=== PATIENT | male | born 1985 | race Caucasian/White ===

== ENCOUNTER 2020-11-17 02:53 | Emergency (ER) | payer MEDICAID, SELFPAY ==
--- NOTE | ~2020-11-17 | XR_ITS ---
EXAMINATION: XR CHEST CLINICAL INFORMATION: Cough COMPARISON: 04/10/2018 TECHNIQUE: Frontal view of the chest was obtained. FINDINGS: Normal symmetric lung volumes. No parenchymal consolidation. No pleural effusion. No pneumothorax. Cardiomediastinal silhouette and pulmonary vascularity are within normal limits. No acute osseous abnormalities. XR/XR chest 1V IMPRESSION: Unremarkable examination.
[2020-11-17 03:00] VITALS: BP 125/78; PULSE 80; RESP 16; TEMP 36.8; O2SAT 98; BMI 34.8
--- NOTE | 2020-11-17 03:10 | ED_ITS ---
HPI - General Adult General Chief complaint: Nausea/Vomiting/Diarrhea Stated complaint: FLU LIKE SX, FEVER,CHILLS,WEAKNESS Time Seen by Provider: 11/17/20 03:09 Source: patient and EMS Mode of arrival: EMS Limitations: no limitations History of Present Illness HPI narrative: 35 years old male came in by ambulance for evaluation of subjective fever. Symptoms started yesterday's, no recent travel, no sick contact. Patient is complaining of subjective fever, generalized body ache, nausea, vomiting, and headache. Patient has received 2 shots for COVID vaccination. Related Data Allergies Allergy/AdvReac Type Severity Reaction Status Date / Time No Known Allergies Allergy Unverified 12/31/19 15:51 Review of Systems Review of Systems: All other systems are reviewed and are negative Constitutional: Reports as per HPI and Reports no additional constitutional c omplaints Eyes: Reports as per HPI and Reports no additional eye complaints Reports system reviewed and no additional complaints, except as documented Cardiovascular: Reports as per HPI and Reports no additional cardiovascular complaints Respiratory: Reports as per HPI and Reports no additional respiratory complaints Gastrointestinal: Reports as per HPI and Reports no additional gastrointestinal complaints Genitourinary: Reports no additional female genitourinary complaints Musculoskeletal: Reports no additional musculoskeletal complaints Skin/Breast: Reports system reviewed and no additional complaints, except as docu Psychiatric: Reports no additional psychiatric complaints Endocrine: Reports no additional endocrine complaints Hematologic/Lymphatic: Reports no additional hematologic/lymphatic complaints Allergic/Immunologic: Reports no additional allergic/immunologic complaints Reports system reviewed and no additional complaints, except as documented and Reports Abnormal speech [facility] Social History Social History Advance Directives: No Advance Directives Information Provided: Yes Physical Exam Vital Signs: Vital Signs: Last Vital Signs Temp 98.3 F 11/17/20 03:00 Pulse 78 11/17/20 06:39 Resp 16 11/17/20 06:39 BP 122/76 11/17/20 06:39 Pulse Ox 98 11/17/20 06:39 Body Mass Index 34.8 Vital signs have been reviewed as appeared to be correct. Blood pressure normal. Heart rate normal. Respiration rate normal. Temperature normal. Oxygen saturation normal. Appearance: Alert. Oriented X3. No acute distress. Head: Normal external exam. Normocephalic. Atraumatic. No Quigley signs noted. No raccoon eyes noted Eyes: PERRLA. EOMI. Conjunctiva and sclera normal. Eyelids normal. ENT: TM's Normal. Pharynx normal. Uvula midline. Moist mucous membranes. No trismus noted. No drooling noted. No muffled voice noted. Neck: Normal inspection. Neck supple. FROM. No adenopathy. Thyroid Normal. No meningeal signs. No neck mass noted. CVS: Normal heart rate and rhythm. Heart sound normal. No murmurs noted. Pulses normal throughout. Respiratory: No respiratory distress. Painless inspiration. Breath sounds normal. No wheezes/rales/rhonchi noted. Chest nontender. No accessory muscle usage noted or decreased air movement noted. Abdomen: Soft and nontender. Bowel sounds normal in all 4 quadrants. No distention noted. No organomegaly noted. No visible injury noted. Back: No CVA tenderness. Full range of motion noted. Skin: Skin warm and dry. Normal skin color. Normal skin turgor. No rashes/lesions/lacerations noted. Extremities: No lower extremity edema. Extremities exhibit normal range of motion. Extremities nontender. Neuro: Oriented X 3. No motor deficit. No sensory deficit. Reflexes normal. Course Course Course Narrative: Assessment and plan. Flu-like symptoms, negative swab for flu/COVID/RSV. Also unremarkable chest x- ray. reassure, discharge and follow-up with PCP. Fever control at home with Tylenol and ibuprofen. Medical Decision Making Lab Data Lab results reviewed: Yes I reviewed the patient's lab results. Labs: Lab Results 11/17/20 Range/Units 03:20 Coronavirus (PCR) NEGATIVE (Negative) Influenza Type A (PCR) NEGATIVE (Negative) Influenza Type B (PCR) NEGATIVE (Negative) RSV RNA Qual (PCR) NEGATIVE (Negative) Imaging Data Chest x-ray: Radiologist's impression: Unremarkable examination. Discharge Plan Discharge Clinical Impression: Acute viral syndrome Patient Disposition: Home, Self-Care Instructions: Viral Syndrome (ED) Referrals: [facility] [Primary Care Provider] - 2 days
--- NOTE | 2020-11-17 03:14 | PC.NURSE ---
PT TO ROOM WITH C/O NAUSEA/VOMITING SINCE YESTERDAY. PT CHG INTO GOWN AND MD AT BEDSIDE WITH PT. SWAB COLLECTED TO LAB. X-RAY IN ROOM FOR CXR.
[2020-11-17] MEDS: Ibuprofen 600 MG TABLET PO (03:17)
[2020-11-17] MEDS: Ondansetron ODT 4 MG TAB.RAPDIS TRANSLINGU (03:17)
--- NOTE | 2020-11-17 03:25 | PC.NURSE ---
PT MEDICATED PER EMAR. WILL CONTINUE TO MONITOR PT.
--- NOTE | 2020-11-17 04:00 | PC.NURSE ---
PT RESTING IN STRETCHER, WAKES TO VOICE AND DENIES ANY COMPLAINTS. PT AWAITING X-RAY REPORT.
[2020-11-17 04:07] LABS: Influenza A PCR NEGATIVE (Negative); Influenza B PCR NEGATIVE (Negative); Resp Syncy Virus RNA Qual PCR NEGATIVE (Negative); SARS COV2 PCR INHOUSE NEGATIVE (Negative)
[2020-11-17 06:00] VITALS: PULSE 70; RESP 16
[2020-11-17 06:39] VITALS: BP 122/76; PULSE 78; RESP 16; O2SAT 98
== END 2020-11-17 07:28 | disposition home or self-care (01) ==
PROVIDERS: Emergency Provider Emergency Medicine
DX: B34.9 Viral infection, unspecified (principal); R50.9 Fever, unspecified; Z20.822 Contact with and (suspected) exposure to COVID-19
CPT/HCPCS: 0241U; 36415; 71045; 99284

== ENCOUNTER 2022-11-09 15:36 | Outpatient (REF) | payer MEDICAID, SELFPAY ==
[2022-11-09 16:19] LABS: MANUAL DIFF FLAG NO
[2022-11-09 16:38] LABS: Basophils Absolute Auto 0.1 X10*3/uL (0.0-0.2); Basophils Percent Auto 0.6 % (0-2); Eosinophils Absolute Auto 0.9 X10*3/uL (0.0-0.4); Eosinophils Percent Auto 10.4 % (0-4); Hematocrit 38.2 % (42.0-52.0); Hemoglobin 12.9 g/dl (14.0-18.0); Imm Gran Abs Auto 0.04 X10*3/uL (0.00-0.03); Imm Gran Pct Auto 0.5 % (0.0-0.4); Immature Retic Fraction 6.8 % (2.3-13.4); Lymphocytes Absolute Auto 3.4 X10*3/uL (1.2-4.9); Lymphocytes Percent Auto 38.3 % (20-40); Mean Corpuscular HGB Conc 33.8 g/dl (31.0-36.0); Mean Corpuscular Hemoglobin 28.5 pg (27.0-33.0); Mean Corpuscular Volume 84.5 fL (80.0-98.0); Mean Platelet Volume 9.4 fL (9.4-12.4); Monocytes Absolute Auto 0.5 X10*3/uL (0.1-1.2); Monocytes Percent Auto 6.1 % (2-11); Neutrophils Absolute Auto 3.9 x10*3/uL (2.0-8.3); Neutrophils Percent Auto 44.1 % (45-73); Platelet Count 251 X10*3/uL (160-400); Red Blood Count 4.52 X10*6/uL (4.60-5.80); Red Cell Distribution Width 11.9 % (11.0-16.0); Retic HGB Equivalent 34.5 pg (30.0-35.0); Reticulocyte Percent 1.3 % (0.5-1.8); Reticulocytes Absolute 0.058 X10*6/uL (0.026-0.095); White Blood Count 8.8 X10*3/uL (4.8-10.8)
[2022-11-09 16:59] LABS: Estimated Average Glucose 114 mg/dL; Hemoglobin A1c % 5.6 %
[2022-11-09 17:05] LABS: Alanine Aminotransferase 86 U/L (0-40); Albumin Level 4.3 g/dL (3.5-5.0); Alkaline Phosphatase 77 U/L (39-117); Anion Gap 16 (12-20); Aspartate Amino Transferase 43 U/L (5-37); Bilirubin Total 0.5 mg/dL (0.0-1.0); Blood Urea Nitrogen 12 mg/dL (9-16); Calcium 9.6 mg/dL (8.4-10.2); Carbon Dioxide 21 mmol/L (22-29); Chloride 100 mmol/L (96-108); Cholesterol 237 mg/dL; Estimated Glomerular Filt Rate > 60; Glucose Random 103 mg/dL (60-115); HDL Cholesterol 36 mg/dL; Iron 118 mcg/dL (45-160); LDL Cholesterol Calculated 169 mg/dl; Percent Iron Saturation 41 % (15-50); Potassium 4.4 mmol/L (3.3-5.1); Sodium 133 mmol/L (135-145); Total Iron Binding Capacity 287 mcg/dL (228-428); Total Protein 7.8 g/dL (6.5-8.0); Triglycerides 162 mg/dL; Unsaturated Iron Binding 169 ug/dL
[2022-11-09 17:26] LABS: Ferritin 361 ng/mL (20-250); TSH reflex Free T4 1.69 uIU/mL (0.32-4.0)
[2022-11-09 17:34] LABS: Folate 15.1 ng/mL (> or = 4.0); Vitamin B12 859 pg/mL (200-900)
[2022-11-12 04:00] LABS: Syphilis Screen Nonreactive (Nonreactive)
[2022-11-12 04:38] LABS: ~HepC Num1 0.06 S/CO (0.00-0.79); ~Hepatitis C Antibody Nonreactive (Nonreactive)
[2022-11-13 20:48] LABS: HIV RNA PCR Qn Copies Not Detected Copies/mL; HIV RNA PCR Qn Log Copies Not Detected Log cps/mL
== END 2022-11-09 15:37 | disposition home or self-care (01) ==
LOC: HO.HHCL 15:36
PROVIDERS: Visit Provider Registered Nurse
DX: Z11.3 Encounter for screening for infections with a predominantly sexual mode of transmission (principal); Z11.4 Encounter for screening for human immunodeficiency virus [HIV]; G25.81 Restless legs syndrome; E66.09 Other obesity due to excess calories; Z68.30 Body mass index [BMI] 30.0-30.9, adult
CPT/HCPCS: 36415; 80053; 80061; 82607; 82728; 82746; 83036; 83540; 84443; 85025; 85045; 86780; 86803; 87536; 87900

== ENCOUNTER 2024-12-07 14:32 | Outpatient (REF) | payer MEDICAID, SELFPAY ==
--- OUTSIDE RECORDS SUMMARY | 2024-12-07 14:00 | XMS_ITS | Encounter Summary ---
Author Organization [employer] Address [address] [facility] 7 [place] [address] Care Team Providers Care Scuba Instructor Name Role Phone Carolyn Concepcion Primary Care Provider [phone] Reason for Visit * Reason Comments Follow-up Encounter Details Date Type Department Care Team ([facility] Contact Info) Description 12/07/2024 2:00 PM EDT Office Visit [facility] MEDICINE [address] [place] [address] Carolyn Concepcion ANP [address] [place] [address] Normocytic anemia (Primary Dx); VALERIA (obstructive sleep [...] Author Not at all 12/07/2024 2:15 PM ERINT Veronica Downs MA * Thoughts that you [...] Downs MA documented as of this encounter Plan of Treatment Scheduled Orders Name Type Priority Associated Diagnoses Orde r Schedule Comprehensive Metabolic Panel Lab Routine Elevated hemoglobin A1c Expected: 12/07/2024 (Approximate), Expires: 12/07/2025 CBC auto differential Lab Routine Normocytic anemia VALERIA (obstructive sleep apnea) Expected: 12/07/2024 (Approximate), Expires: 12/07/2025 Iron And Total Iron Binding Capacity Lab Routine Normocytic anemia Expected: 12/07/2024, Expires: 12/07/2025 Reticulocyte Count Lab Routine Normocytic anemia Expected: 12/07/2024 (Approximate), Expires: 12/07/2025 Hemoglobin A1c Lab Routine Elevated hemoglobin A1c Expected: 12/07/2024 (Approximate), Expires: 12/07/2025 Helicobacter pylori Antigen, EIA, Stool Lab Routine Esophagitis Expected: 12/07/2024, Expires: 12/07/2025 Hepatitis C Antibody with Reflex to HCV, RNA, Quantitative, Real-Time PCR Lab Routine Routine screening for STI (sexually transmitted infection) Expected: 12/07/2024 (Approximate), Expires: 12/07/2025 HIV-1/2 Antigen and Antibodies, Fourth Generation, with Reflexes Lab Routine Routine screening for STI (sexually transmitted infection) Expected: 12/07/2024 (Approximate), Expires: 12/07/2025 Syphilis Screen Lab Routine Routine screening for STI (sexually transmitted infection) Expected: 12/07/2024 (Approximate), Expires: 12/07/2025 documented as of this encounter Visit Diagnoses Diagnosis Normocytic anemia- [...] Time PHQ-9 Depression Total Score: 3 12/08/19 25 2:15 PM EDT documented as of this encounter Care Teams Scuba Instructor Relationship Specialty Start Date End Date Carolyn Concepcion ANP [address] [place] [id number] PCP - General Family Medicine 01/03/23 documented as of this encounter
[2024-12-07 16:14] LABS: MANUAL DIFF FLAG NO
--- OUTSIDE RECORDS SUMMARY | 2024-12-07 16:15 | XMS_ITS | Encounter Summary ---
Author Organization [employer] Address 75 [facility] 7 [place] [address] Care Team Providers Care Business Development Associate Name Role Phone Carolyn Concepcion Primary Care Provider [phone] Reason for Visit * Reason Onset Date Comments Med Refill 03/02/2024 Encounter Details Date Type Department Care Team ([facility] Contact Info) Description 03/02/2024 Telephone [facility] MEDICINE [address] [place], [place] [phone] Carolyn Concepcion ANP [address] [place] [address] Med Refill Social History Tobacco Use Types Packs/Day Years Used Date Smoking Tobacco: Never Passive Smoke Exposure: Never Smokeless Tobacco: Never Alcohol Use Standard Drinks/Week Comments Never 0 (1 standard drink = 0.6 oz pur e alcohol) Depression Answer Date Recorded Patient Health Questionnaire-9 Score 6 11/09/2022 Housing Stability Answer Date Recorded What is your housing situation today? I have cheryl arriaga 01/28/[address] you li ve. Do you have problems with any of the following? None of the above 01/28/2023 Food Insecurity Answer Date Recorded Within the past 12 months, y ou worried that your food would run out before you got money to buy more: Never True 01/28/2023 Within the past 12 months,th e food you bought just didn't last and you didn't have enough money to get more: Never True Transportation Answer Date Recorded In the past 12 months, has l ack of transportation kept you from medical appts, meetings, work or from getting things needed for daily living? No 01/28/2023 Utilities Answer Date Recorded In the past 12 months, has t he electric, gas, oil or water company threatened to shut off services in your home? No 01/28/2023 Depression Answer Date Recorded Patient Health Questionnaire-2 Score 1 11/09/2022 Sex and Gender Information Value Date Recorded Sex Assigned at Male 02/12/2022 10:15 AM EDT Legal Sex Male 10:15 AM EDT Gender Identity Male 02/12/2022 10:15 AM EDT Sexual Orientation Straight 02/12/2022 10 :15 AM EDT documented as of this encounter Miscellaneous Notes * Telephone Encounter - Joanie Faust LPN - 03/02/2024 1:14 PM EST Medication pended to PCP for approval. * Telephone Encounter - Patricia Malhotra - 03/02/2024 1:10 PM EST TC from pt requesting medication refill. Medications needing refill : cloNIDine (Catapres) 0.1 MG tablet traZODone (Desyrel) 50 MG tablet To be sent to: [facility]/pharmacy #[id number] [place] [address] documented in this encounter Plan of Treatment Not on file documented as of this encounter Visit Diagnoses Not on filedocumented in this encounter Additional Health Concerns Assessment Noted Time PHQ-9 Depression Total Score: 6 11/10/19 23 2:20 PM EDT documented as of this encounter Care Teams Business Development Associate Relationship Specialty Start Date End Date Carolyn Concepcion ANP [address] [place] [address] PCP - General Family Medicine 01/03/23 documented as of this encounter
--- OUTSIDE RECORDS SUMMARY | 2024-12-07 16:15 | XMS_ITS | Encounter Summary ---
Author Organization [employer] Address 75 [facility] 7t [place] [address] Care Team Providers Care Rn New Grad Name Role Phone Kenneth Hernandez Primary Care Provider Unavail Carolyn Moseley Primary Care Provider [phone] Reason for Visit * Reason Onset Date Comments Appointment Request 09/24/2022 Encounter Details Date Type Department Care Team (Late st Contact Info) Description 09/24/2022 Telephone [facility] MEDICINE [address] [place] [address] Kenneth Hernandez AGNP Appointment Request Social History Tobacco Use Types Packs/Day Years Used Date Smoking Tobacco: Never Assessed Sex and Gender Information Value Date Recorded Sex Assigned at Male 02/12/2022 10:15 AM EDT Legal Sex Male 10:15 AM EDT Gender Identity Male 02/12/2022 10:15 AM EDT Sexual Orientation Straight 02/12/2022 10 :15 AM EDT documented as of this encounter Miscellaneous Notes * Telephone Encounter - Adriana Garcia RN - 09/26/2022 10:23 AM EDT T/C to [phone] for below message, No answer. LVM to call back on [phone]. * Telephone Encounter - Armida Morrissey - 09/24/2022 4:03 PM EDT Tc from pt requesting an appointment to discuss medications clonidine 0.1 mg and trazodone states was prescribed by outside provider. Pt states they are no longer being seen. Web Content Manager did advise PCP was changed from Dr. Leija to , needs TP appointment. Pt is also requesting a call back from nurses in regards to medication. Please contact pt at [phone] documented in this encounter Plan of Treatment Not on file documented as of this encounter Visit Diagnoses Not on filedocumented in this encounter Care Teams Rn New Grad Relationship Specialty Start Date End Date Kenneth Hernandez AGNP PCP - General Family Medicine 01/23/22 01/02/23 Carolyn Concepcion ANP [address] [place] [phone] PCP - General Family Medicine 01/03/23 documented as of this encounter
--- OUTSIDE RECORDS SUMMARY | 2024-12-07 16:15 | XMS_ITS | Encounter Summary ---
Author Organization [employer] Address 75 [facility] 7t [place] [address] Care Team Providers Care Account Manager Name Role Phone Carolyn Concepcion Primary Care Provider [phone] Encounter Details Date Type Department Care Team (Latest Contact Info) Description 12/07/2024 Travel Social History Tobacco Use Types Packs/Day Years [...] AM EDT documented as of this encounter Functional Status * Over the [...] as of this encounter Plan of Treatment Not on file documented as of this encounter Visit Diagnoses Not on filedocumented in this encounter Additional Health Concerns Assessment Noted Time PHQ-9 Depression Total Score: 3 12/08/19 2:15 PM EDT documented as of this encounter Care Teams Account Manager Relationship Specialty Start Date End Date Carolyn Concepcion ANP [address] [place] [address] PCP - General Family Medicine 01/03/23 documented as of this encounter
--- OUTSIDE RECORDS SUMMARY | 2024-12-07 16:15 | XMS_ITS | Encounter Summary ---
Author Organization [employer] Address 75 [facility] 7t [place] [address] Care Team Providers Care Resource Coordinator Name Role Phone Carolyn Concepcion Primary Care Provider [phone] Reason for Visit * Reason Onset Date Comments Med Refill 12/03/2024 Encounter Details Date Type Department Care Team ([facility] Contact Info) Description 12/03/2024 Telephone [facility] MEDICINE [address] [place], [place] [phone] Carolyn Concepcion ANP [address] [place], [place] [phone] Med Refill Social History Tobacco Use Types [...] Telephone Encounter - Joanie Faust LPN - 12/03/2024 3:12 PM EDT Medications were sent to [facility] #[id number] on 11/18/24 #30 to soon for refill. Last seen 03/12/23 and has appointment scheduled for 12/07/24. * Telephone Encounter - Bjorn Abdi - 12/03/2024 2:58 PM EDT TC from pt requesting medication refill. Medications needing refill : trazodone (Desyrel) 50 MG tablet cloNIDine (Catapres) 0.1 MG tablet To be sent to: [facility]/pharmacy #[id number] documented in this encounter Plan of Treatment Not on file documented as of this encounter Visit Diagnoses Not on filedocumented in this encounter Additional Health Concerns Assessment Noted Time PHQ-9 Depression Total Score: 6 11/10/19 2:20 PM EDT documented as of this encounter Care Teams Resource Coordinator Relationship Specialty Start Date End Date Carolyn Concepcion ANP [address] [place] [address] PCP - General Family Medicine 01/03/23 documented as of this encounter
--- OUTSIDE RECORDS SUMMARY | 2024-12-07 16:15 | XMS_ITS | Encounter Summary ---
Author Organization [employer] Address 75 [facility] 7 [place] [address] Care Team Providers Care Genetics Physician Name Role Phone Carolyn Concepcion Primary Care Provider [phone] Reason for Visit * Reason Onset Date Comments CHART PREP 12/04/2024 Encounter Details Date Type Department Care Team ([facility] Contact Info) Description 12/04/2024 Telephone [facility] MEDICINE [address] [place] [address] Carolyn Concepcion ANP [address] [place] [address] CHART PREP Social History Tobacco Use Types Packs/Day Years [...] encounter Miscellaneous Notes * Telephone Encounter - Eileen Nichols MA - 12/04/2024 3:38 PM EDT Chart Prep Labs: not applicable Images: not applicable Referrals: not applicable Vaccines due: not applicable Screenings: not applicable Overdue care gaps: SBIRT, SDOH, PHQ-9, MAME-7, Oral health screening, and Disability screen documented in this encounter Plan of Treatment Not on file documented as of this encounter Visit Diagnoses Not on filedocumented in this encounter Additional Health Concerns Assessment Noted Time PHQ-9 Depression Total Score: 6 11/10/19 23 2:20 PM EDT documented as of this encounter Care Teams Genetics Physician Relationship Specialty Start Date End Date Carolyn Concepcion ANP [address] [place] [address] PCP - General Family Medicine 01/03/23 documented as of this encounter
--- OUTSIDE RECORDS SUMMARY | 2024-12-07 16:15 | XMS_ITS | Clinical Summary ---
Author Organization [employer] Address [address] [place] [address] 7t [place] [address] Care Team Providers Care Airport Electrician Name Role Phone Carolyn Concepcion HAVEN Primary Care Provider [phone] Allergies Active Allergy Reactions Criticality Noted Date Comments Acyclovir Unknown 12/07/2024 Penicillin G Rash Low 09/16/2019 Rash PCN, Chest tightness to amoxicillin Ropinirole 07/19/2014 Other Reaction(s): palpitations, loss of appetite Medications ferrous gluconate (Fergon) 324 (38 Fe) MG tablet TAKE 1 TABLET BY MOUTH WITH BREAKFAST 90 tablet 1 04/10/20 24 Active traZODone (Desyrel) 50 MG tabletIndicati ons:Insomnia, unspecified type TAKE 1 TABLET BY MOUTH EVERYDAY AT BEDTIME 30 tablet 11/19/19 25 Active cloNIDine (Catapres) 0.1 MG tabletIndicati ons:Insomnia, unspecified type TAKE 1 TABLET BY MOUTH EVERYDAY AT BEDTIME 30 tablet 11/19/19 25 Active famotidine (Pepcid) 20 MG tabletIndicati ons:Esophagiti s TAKE 1 TABLET BY MOUTH TWICE A DAY NEEDED FOR ACID REFLUX 90 tablet 12/08/19 25 Active fluticasone (Flonase) 50 MCG/ACT nasal sprayIndicatio ns:Nasal congestion Administer 1-2 sprays into each nostril if needed each day for rhinitis or allergies. Shake gently. Before first use, prime pump. After use, clean tip and replace cap. 48 mL 12/08/19 25 Active cholecalcifero l (Vitamin D-3) 50 MCG (2000 UT) capsuleIndicat ions:Low vitamin D level Take 1 capsule (50 mcg) by mouth in the morning. 30 capsule 11 10/01/19 025 Discontinued(Th erapy completed) traMADol (Ultram) 50 MG tablet TAKE 1 TO 2 TABLETS AT BEDTIME NEEDED 08/20/19 025 Discontinued famotidine (Pepcid) 20 MG tabletIndicati ons:Esophagiti s TAKE 1 TABLET BY MOUTH TWICE A DAY NEEDED FOR ACID REFLUX 90 tablet 05/10/19 025 Discontinued(Re order (will not trigger notification to Pharmacy)) fluticasone (Flonase) 50 MCG/ACT nasal sprayIndicatio ns:Nasal congestion Administer 1-2 sprays into each nostril if needed each day for rhinitis or allergies. Shake gently. Before first use, prime pump. After use, clean tip and replace cap. 48 mL 01/24/20 025 Discontinued(Re order (will not trigger notification to Pharmacy)) traZODone (Desyrel) 50 MG tabletIndicati ons:Insomnia, unspecified type TAKE 1 TABLET BY MOUTH EVERYDAY AT BEDTIME 30 tablet 10/20/19 025 Discontinued cloNIDine (Catapres) 0.1 MG tabletIndicati ons:Insomnia, unspecified type TAKE 1 TABLET BY MOUTH EVERYDAY AT BEDTIME 30 tablet 10/20/19 025 Discontinued Active Problems Problem Noted Date Diagnosed Date Tinnitus aurium, left 02/19/2023 Assessment & Plan (02/19/2023 5:37 PM EST): I explain that it can disappear spontaneously or can stay for many years/get worse. Unclear if related to residual Eustachian tube dysfunction (sp rhinitis?) or something else. Counseled to use Flonase daily x 1m and fu w PCP Counseled to avoid use of headphones/airpods Elevate head of the bed at 30 degrees to sleep, avoid GERD, cut down smoking THC. If not improved, may need hearing evaluation. Nasal congestion 02/19/2023 Transaminitis 11/16/2022 Assessment & Plan (11/16/2022 4:44 PM EDT): Patients blood work came back. It shows elevated ferritin: Component Ref Range & Units 7 d ago Ferritin 20 - 250 ng/mL 361 High He also has elevated liver enzymes: Aspartate Amino Transferase 5 - 37 U/L 43 High Alanine Aminotransferase 0 - 40 U/L 86 High 108 High R 305 High R But his cbc shows anemia: RO hemochromatosis. Component Ref Range & Units 7 d ago (11/09/22) 1 yr ago (11/07/21) 1 yr ago (01/24/21) White Blood Count 4.8 - 10.8 X10*3/uL 8.8 Red Blood Count 4.60 - 5.80 X10*6/uL 4.52 Low Hemoglobin 14.0 - 18.0 g/dl 12.9 Low 11.9 Low R 13.1 Low R Hematocrit 42.0 - 52.0 % 38.2 Low 34.9 Low R 39.0 R I am going to order an US abdomen to monitor his liver. Order a hepatitis panel, and also give him some iron for the anemia. Normocytic anemia 11/16/2022 Class 1 obesity due to exces s calories with body mass index (BMI) of 30.0 to 30.9 in adult 11/09/2022 Routine adult health maintenance 09/30/2022 Low vitamin D level 09/30/2022 Restless leg syndrome 09/28/2022 Assessment & Plan (11/09/2022 5:03 PM EDT): I offered gabapentin, he says he has tried that and it didn't work. He states the only thing that works is tramadol. I told him I was not prescribing him tramadol for restless leg. I pointed out that he kept putting off having his labs drawn. He said he would go. I reordered all of his previous labs. VALERIA (obstructive sleep apnea) 09/28/2022 Insomnia 04/21/2018 Assessment & Plan (11/09/2022 5:04 PM EDT): Conservative therapies have failed. Patient requesting referral to sleep medicine. Assessment & Plan (09/28/2022 1:45 PM EDT): I advise patient to make sure sleep clinic will transfer notes to us after this PCP can review notes and decide for tramadol prescription, I reviewed his PDMP and it did not trigger to me any red flags for now (last tramadol prescription 1 month ago no inconsistencies) I will re-start his prescription for clonidine 0.1mg daily C/w trazadone 50mg at bed time RTC for transfer appointment with PCP Clostridium difficile infection 04/21/2018 01/28/2023 Duodenal ulcer disease 04/21/2018 Opioid abuse 04/21/2018 01/28/2023 Upper gastrointestinal bleeding 04/21/2018 01/28/2023 New daily persistent headache 01/24/2018 Sleep apnea 07/16/2014 01/28/2023 Periodic limb movement disorder 07/16/2014 01/28/2023 Herpes simplex type 2 infection 01/03/2012 01/28/2023 Mixed anxiety and depressive disorder 01/03/2012 01/28/2023 Encounters Date Type Department Care Team Description 12/07/2024 2:00 PM EDT Office Visit [facility] MEDICINE [address] [place] [phone] Carolyn Concepcion ANP Normocytic anemia (Primary Dx); VALREIA (obstructive sleep apnea); Periodic limb movement disorder; Mixed anxiety and depressive disorder; Elevated hemoglobin A1c; Esophagitis; Nasal congestion; Routine screening for STI (sexually transmitted infection) 12/07/2024 Travel 12/04/2024 Telephone [facility] MEDICINE [address] [place] [address] Carolyn Concepcion ANP CHART PREP 12/03/2024 Telephone [facility] MEDICINE [address] [place] [address] Carolyn Concepcion ANP Med Refill 11/17/2024 Refill [facility] [address] [place] [address] Cassie Monteiro MD Insomnia, unspecified type 10/18/2024 Refill [facility] [address] [place] [address] Carolyn Concepcion ANP Insomnia, unspecified type 09/14/2024 Telephone [facility] MEDICINE [address] [place] [address] Romero Fernandez MA Appointment Request 09/14/2024 Orders Only [facility] MEDICINE [address] [place] [phone] Carolyn Concepcion ANP 09/12/2024 Refill [facility] [address] [place] [address] Carolyn Concepcion ANP Insomnia, unspecified type from Last 3 Months Immunizations Immunization Administration Dates Next Due DTaP 11/15/1988, 8,1984,07/28,1984 Hep A, Adult 12/18/2005 Hep B, Adolescent or Pediatric 07/28/1998,1997,09/22/1997 Hib (HbOC) 01/16/1988 INFLUENZA INJECTABLE QUADRIV ALANT CCIIV4 MDCK Multi-dose vial 02/13/2020 IPV 09/16/1989, 9,1984,04/23 Influenza injectable quadriv alent IIV4 with preservative 01/28/2015 Influenza injectable quadriv alent preservative free 01/30/2023,01/24/2021,05/05/2014 Influenza, IIV3, injectable 03/02/2011 Influenza, Split (incl. marilyn fied surface antigen) 01/04/2012 MMR 08/08/1995,06/30/1985 Rabies, intramuscular 03/10/2012 TD (adult), 2 Lf tetanus tox oid, preservative free, adsorbed 12/09/2007,07/06/1996 Tdap 01/30/2023,03/02/2011 Social History Tobacco Use Types Packs/Day Years Used Date Smoking Tobacco: Never Passive Smoke Exposure: Never Smokeless Tobacco: Never Tobacco Cessation:Counseling Given: Not Answered Alcohol Use Standard Drinks/Week Comments Never 0 [...] the past 12 months, has t he [employer], gas, oil or water company threatened to [...] Orientation Straight 02/12/2022 10 :15 AM EDT Last Filed Vital Signs Vital Sign Reading [...] Mass Index 29.8 12/07/2024 2:00 PM EDT Plan of Treatment Health Maintenance Due Date Last Done Comments HIV Screening 1984 Alcohol/Substance Use Screening 1996 Family Planning (PISQ) 01/25/1999 HPV Vaccines (1 - Male 3-dose series) 01/25/1999 COVID-19 Vaccine ( season) 2023 05/25/2021, 11/02/2020, 10/05/2020 Influenza Vaccine (#1) 2024 , 01/24/2021, 02/13/2020, Additional history exists Depression Screening 12/07/2025 12/07/2024, 12/08/19 Disability Screening 12/07/2025 12/07/2024 SDOH Screening 12/07/2025 12/07/2024 Tobacco Screening 12/07/2025 12/07/2024 Lipid Panel 11/10/2027 11/09/2022, 01/24/2021 DTaP/Tdap/Td Vaccines (8 - Td or Tdap) 01/30/2033 01/30/2023, 03/02/2011, 12/09/2007, Additional history exists Zoster Vaccines (1 of 2) 01/25/2034 RSV Patients and Patients Aged 60 years or older (1 - 1-dose 75+ series) 01/25/2059 HIB Vaccines Completed 01/16/1988 IPV Vaccines Completed 09/16/1989, 11/15, 1984, Additional history exists Hepatitis B Vaccines Completed 07/28/1998, 11/17/1997, 09/22/1997 Hepatitis A Vaccines Aged Out 12/18/2005 No long er eligible based on patient's age to complete this topic Hepatitis C Screening Completed 11/09/2022 Meningococcal B Vaccine Aged Out No l onger eligible based on patient's age to complete this topic Meningococcal Vaccine Aged Out No kalli rafa eligible based on patient's age to complete this topic Pneumococcal Vaccine: Pediatrics (0 to 5 Years) and At-Risk Patients (6 to 49) Years Aged Out No longer eligible based on patient's age to complete this topic RSV under 20 months Aged Out No longe r eligible based on patient's age to complete this topic Rotavirus Vaccines Aged Out No longer eligible based on patient's age to complete this topic Procedures Procedure Name Priority Date/Time Associated Diagnosis Comments HEPATITIS C ANTIBODY REFLEX Routine 11/09/2022 3:44 PM EDT LIPID PANEL, STANDARD Routine 11/09/2022 3:44 PM EDT Class 1 obesity due to excess calories with body mass index (BMI) of 30.0 to 30.9 in adult, unspecified whether serious comorbidity present from Last 3 Months or Most Recently Relevant to Health Maintenance Results * Hepatitis C Antibody Reflex (11/09/2022 3:44 PM EDT) Hepatitis C Antibody Nonreactive Nonreactive [facility] Comment:Antibodies to HCV no t detected; does not exclude early acuteHCV infection. 11/09/2022 3:44 PM EDT 11/09/2022 4:18 PM EDT Kenneth Hernandez [facility] LAB BLOOD ORDERABLES Final Res ult [facility] [address] [place] [phone] * Lipid Panel, Standard (11/09/2022 3:44 PM EDT) Triglycerides 162 mg/dL [facility] Comment:Desirable Triglyceri de: less than 150 mg/dLBorderline High Triglyceride 150-199 mg/dLHigh Triglyceride: 200-499 mg/dLVery High Triglyceride: greater than or equal to 5OO mg/dL Cholesterol 237 mg/dL [facility] Comment:Desirable Cholestero l: less than 200 mg/dLBorderline High Cholesterol: 200-239 mg/dLHigh Cholesterol: greater than 239 mg/dL LDL Cholesterol Calculated 169 mg/dl [facility] Comment:Desirable LDL: less than 100 mg/dLNear Optimal/Above Optimal LDL: 110- 129 mg/dLBorderline High LDL: 130-159 mg/dLHigh LDL: 160-189 mg/dLVery High LDL: greater than or equal to 190 mg/dL HDL Cholesterol 36 mg/dL [facility] Comment:Desirable HDL: great er than 40 mg/dL Note: This HDL assay may give artificially low results in patients with liver disease. Blood Venous blood specimen / Unknown 11/09/2022 3:44 PM EDT 11/09/2022 4:18 PM EDT us Kenneth Hernandez AGNP LAB BLOOD ORDERABLES Final Res ult [facility] [address] [place] [phone] [phone] from Last 3 Months or Most Recently Relevant to Health Maintenance Insurance [facility] C3 Care Teams Airport Electrician Relationship Specialty Start Date End Date Carolyn Concepcion ANP [address] [place] [id number] PCP - General Family Medicine 01/03/23
--- OUTSIDE RECORDS SUMMARY | 2024-12-07 16:15 | XMS_ITS | Encounter Summary ---
Author Organization [employer] Address [address] [facility] [address] [place] [address] Care Team Providers Care Fitness Trainer Name Role Phone Kenneth Hernandez Primary Care Provider Unavail Carolyn Moseley Primary Care Provider [phone] Reason for Visit * Reason Onset Date Comments Nurse Triage 09/28/2022 Encounter Details Date Type Department Care Team ([facility] st Contact Info) Description 09/28/2022 Telephone [facility] MEDICINE [address] [place] [address] Kenneth Hernandez AGNP Nurse Triage Social History Tobacco Use Types Packs/Day Years Used Date Smoking Tobacco: Never Passive Smoke Exposure: Never Smokeless Tobacco: Never Sex and Gender Information Value Date Recorded Sex Assigned at Male 02/12/2022 10:15 AM EDT Legal Sex Male 10:15 AM EDT Gender Identity Male 02/12/2022 10:15 AM EDT Sexual Orientation Straight 02/12/2022 10 :15 AM EDT COVID-19 Exposure Response Date Recorded In the last 10 days, have yo u been in contact with someone who was confirmed or suspected to have Coronavirus/COVID-19? No / Unsure 09/28/2022 12:08 PM EDT documented as of this encounter Miscellaneous Notes * Telephone Encounter - Aleja Julio RN - 09/28/2022 12:02 PM EDT Triage call Pt reports sleeping difficulty. Pt has dx of insomnia and restless leg syndrome. 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 [facility] [place] difficulty Pt missed too many apts and nowhas been discharged. Pt had been taking clonidine 0.1mg and trazadone 50mg which was very effectivefor sleep. Pt has no medication left . Pt is advised to come to [facility] to be seen by provider and Pt agrees. Insurance is verified as active prior to booking. Protocol Used: Insomnia (Adult) Protocol-Based Disposition: See in Office or Video Visit within 3 Days Video visit not offered Positive Triage Questions: * Insomnia interferes with work or school * Patient wants to be seen * All higher-acuity triage questions were negative Care Advice Discussed: * Reassurance and Education * Tips for Good Sleep * Tips for Good Sleep - Your Bedroom * Tips for Good Sleep - When You Can't Fall Asleep * Tips for Good Sleep - When Worrying Keeps You Awake * Tips for Good Sleep - What To Avoid * How Much Sleep Is Enough? * Reasons To Call Back - Insomnia symptoms persist over 2 weeks - You become worse * Telephone Encounter - Felipe Dudley - 09/28/2022 11:37 AM EDT Symptom: Sleeping Difficulty Outcome: Schedule an appointment to be seen within 24 hours Reason: This is the only possible outcome for this symptom Please contact pt at [phone] documented in this encounter Plan of Treatment Not on file documented as of this encounter Visit Diagnoses Not on filedocumented in this encounter Care Teams Fitness Trainer Relationship Specialty Start Date End Date Kenneth Hernandez AGNP PCP - General Family Medicine 01/23/22 01/02/23 Carolyn Concepcion ANP [address] [place] [id number] PCP - General Family Medicine 01/03/23 documented as of this encounter
--- OUTSIDE RECORDS SUMMARY | 2024-12-07 16:15 | XMS_ITS | Encounter Summary ---
Author Organization [employer] Address [address] [facility] 7t [place] [address] Care Team Providers Care Tar Distillation Supervisor Name Role Phone Carolyn Concepcion Primary Care Provider [phone] Reason for Visit * Reason Comments Med Refill Encounter Details Date Type Department Care Team ([facility] st Contact Info) Description 04/03/2024 Refill [facility] MEDICINE [address] [place] [address] Carolyn Concepcion ANP [address] [place] [address] Nasal congestion Social History Tobacco Use Types Packs/Day Years [...] AM EDT documented as of this encounter Plan of Treatment Not on file documented as of this encounter Visit Diagnoses Diagnosis Nasal congestion Other diseases of nasal cavity and sinuses documented in this encounter Additional Health Concerns Assessment Noted Time PHQ-9 Depression Total Score: 6 11/10/19 23 2:20 PM EDT documented as of this encounter Care Teams Tar Distillation Supervisor Relationship Specialty Start Date End Date Carolyn Concepcion ANP [address] [place] [address] PCP - General Family Medicine 01/03/23 documented as of this encounter
[2024-12-07 16:16] LABS: Hematocrit 34.5 % (42.0-52.0); Hemoglobin 11.9 g/dl (14.0-18.0); Imm Gran Abs Auto 0.03 X10*3/uL (0.00-0.03); Imm Gran Pct Auto 0.4 % (0.0-0.4); Lymphocytes Absolute Auto 1.8 X10*3/uL (1.2-4.9); Mean Corpuscular HGB Conc 34.5 g/dl (31.0-36.0); Mean Corpuscular Hemoglobin 28.4 pg (27.0-33.0); Mean Corpuscular Volume 82.3 fL (80.0-98.0); NRBC Abs Auto 0.000 X10*3/uL (0.0-0.012); NRBC Pct Auto 0.0 /100WBC (0.0-0.2); Platelet Count 314 X10*3/uL (160-400); Red Blood Count 4.19 X10*6/uL (4.60-5.80); Reticulocytes Absolute 0.058 X10*6/uL (0.026-0.095); White Blood Count 8.3 X10*3/uL (4.8-10.8)
[2024-12-07 16:26] LABS: Hemoglobin A1C 134.7440 umol/L; Total Hemoglobin (HGBA1C) 3218.5012 umol/L
[2024-12-07 16:32] LABS: Alanine Aminotransferase 51 U/L (0-40); Albumin Level 4.5 g/dL (3.5-5.0); Alkaline Phosphatase 68 U/L (39-117); Anion Gap 11 (12-20); Aspartate Amino Transferase 30 U/L (5-37); Blood Urea Nitrogen 11 mg/dL (9-16); Calcium 9.3 mg/dL (8.4-10.2); Carbon Dioxide 27 mmol/L (22-29); Chloride 100 mmol/L (96-108); Estimated Glomerular Filt Rate > 60; Iron 46 mcg/dL (45-160); Percent Iron Saturation 19 % (15-50); Potassium 4.2 mmol/L (3.3-5.1); Sodium 134 mmol/L (135-145); Total Iron Binding Capacity 240 mcg/dL (228-428); Total Protein 7.6 g/dL (6.5-8.0); Unsaturated Iron Binding 194 ug/dL
[2024-12-08 04:09] LABS: Syphilis Screen Nonreactive (Nonreactive)
[2024-12-08 04:35] LABS: HIV Num 1 0.06 S/CO (0.00-0.99); ~HepC Num1 0.13 S/CO (0.00-0.79); ~Hepatitis C Antibody Nonreactive (Nonreactive)
== END 2024-12-07 14:33 | disposition home or self-care (01) ==
LOC: HO.HHCL 14:32
PROVIDERS: PCP Nurse Practitioner Primary Care; Visit Provider Nurse Practitioner Primary Care
DX: Z11.3 Encounter for screening for infections with a predominantly sexual mode of transmission (principal); Z11.59 Encounter for screening for other viral diseases; Z11.4 Encounter for screening for human immunodeficiency virus [HIV]; D64.9 Anemia, unspecified; R73.09 Other abnormal glucose; G47.33 Obstructive sleep apnea (adult) (pediatric)
CPT/HCPCS: 36415; 80053; 83036; 83540; 85025; 85045; 86780; 86803; 87389

== ENCOUNTER 2024-12-08 16:17 | Outpatient (REF) | payer MEDICAID, SELFPAY ==
--- OUTSIDE RECORDS SUMMARY | 2024-12-07 14:00 | XMS_ITS | Encounter Summary ---
Author Organization [employer] Address [address] [place] [address] [address] [place] [address] Care Team Providers Care Lumber Sorter Name Role Phone Carolyn Concepcion Primary Care Provider [phone] Reason for Referral * Consultation (Routine) - Authorized Specialty Diagnoses / Procedures Referred By Hunter marroquin Referred To Contact Gastroenterology Diagnoses Esophagitis Carolyn Concepcion ANP [address] [place] [address] Phone: tel: fax: [facility] Referral ID Status Reason Start Date Expiration Date Visits Requested Visits Authorized [id number] Authorized Specialty Services Required 12/08/2024 12/08/2025 6 6 * Hospital - Outpatient (Routine) - Authorized Specialty Diagnoses / Procedures Referred By Hunter marroquin Referred To Contact Diagnoses VALERIA (obstructive sleep apnea) Procedures Polysomnography Carolyn Concepcion ANP [address] [place] [address] Phone: tel: fax: [address] Phone: tel: fax: Referral ID Status Reason Start Date Expiration Date V isits Requested Visits Authorized [id number] Authorized 12/08/2024 12/08/2025 1 1 Reason for Visit * Reason Comments Follow-up Encounter Details Date Type Department Care Team (Late st Contact Info) Description 12/07/2024 2:00 PM EDT Office Visit [facility] [address] [place] [address] Carolyn Concepcion ANP [address] [place] [address] Normocytic anemia (Primary Dx); VALERIA (obstructive sleep apnea); Periodic limb movement disorder; Mixed anxiety and depressive disorder; Elevated hemoglobin A1c; Esophagitis; Nasal congestion; Routine screening for STI (sexually transmitted infection) Social History Tobacco Use Types Packs/Day Years Used Date Smoking Tobacco: Never Passive Smoke Exposure: Never Smokeless Tobacco: Never Alcohol Use Standard Drinks/Week Comments Never 0 (1 standard drink = 0.6 oz pur e alcohol) Depression Answer Date Recorded Patient Health Questionnaire-9 Score 3 12/07/2024 Patient Health Questionnaire-9 Score 3 12/07/2024 Last PHQ-9: Questionnaire Data Not on file 0 12/07/2024 Housing Stability Answer Date Recorded What is your housing situation today? I have cheryl arriaga 12/07/[address] you li ve. Do you have problems with any of the following? Pests such as bugs, ants, or mice 12/07/2024 Food Insecurity Answer Date Recorded Within the past 12 months, y ou worried that your food would run out before you got money to buy more: Never True 12/07/2024 Within the past 12 months,th e food you bought just didn't last and you didn't have enough money to get more: Never True Transportation Answer Date Recorded In the past 12 months, has l ack of transportation kept you from medical appts, meetings, work or from getting things needed for daily living? Yes, it has kept me from medical appointments or getting medications. 12/07/2024 Utilities Answer Date Recorded In the past 12 months, has t he electric, gas, oil or water company threatened to shut off services in your home? I am not sure 12/07/2024 Depression Answer Date Recorded Patient Health Questionnaire-2 Score 0 12/07/2024 Internet Access Answer Date Recorded Internet Access Q1 Yes 12/07/2024 Internet Access Q2 Not on file 12/07/2024 Sex and Gender Information Value Date Recorded Sex Assigned at Male 02/12/2022 10:15 AM EDT Legal Sex Male 10:15 AM EDT Gender Identity Male 02/12/2022 10:15 AM EDT Sexual Orientation Straight 02/12/2022 10 :15 AM EDT documented as of this encounter Last Filed Vital Signs Vital Sign Reading Time Taken Comments Blood Pressure 120/70 12/07/2024 2:00 PM EDT Pulse 67 12/07/2024 2:00 PM EDT Temperature 36.8 C (98.3 F) 12/07/2024 2:00 PM EDT Respiratory Rate 20 12/07/2024 2:00 PM EDT Oxygen Saturation 98% 12/07/2024 2:00 PM EDT Inhaled Oxygen Concentration - - Weight 91.5 kg (201 lb 12.8 oz) 12/07/2024 2:00 PM EDT Height 175.3 cm (5' 9 ) 12/07/2024 2:00 PM EDT Body Mass Index 29.8 12/07/2024 2:00 PM EDT documented in this encounter Functional Status * Over the past 2 weeks, how often have you been bothered by any of the following problems? Question Answer Date of Assessment Author Patient Health Questionnaire -2 Score 0 12/07/2024 2:15 PM EDT Veronica Downs [place] * Little interest or pleasure in doing things Answer Date of Assessment Author Not at all 12/07/2024 2:15 PM EDT Veronica Downs [place] * Feeling down, depressed, or hopeless Answer Date of Assessment Author Not at all 12/07/2024 2:15 PM EDT Veronica Downs [place] * Trouble falling or staying asleep, or sleeping too much Answer Date of Assessment Author Several days 12/07/2024 2:15 PM EDT Veronica Downs MA * Feeling tired or having little energy Answer Date of Assessment Author Several days 12/07/2024 2:15 PM EDT Veronica Downs [place] * Poor appetite or overeating Answer Date of Assessment Author Several days 12/07/2024 2:15 PM EDT Veronica Downs [place] * Feeling bad about yourself - or that you are a failure or have let yourself or your family down Answer Date of Assessment Author Not at all 12/07/2024 2:15 PM EDT Veronica Downs [place] * Trouble concentrating on things, such as reading the newspaper or watching television Answer Date of Assessment Author Not at all 12/07/2024 2:15 PM EDT Veronica Downs [place] * Moving or speaking so slowly that other people could have noticed? Or the opposite - being so fidgety or restless that you have been moving around a lot more than usual. Answer Date of Assessment Author Not at all 12/07/2024 2:15 PM EDT Veronica Downs MA * Thoughts that you would be better off or hurting yourself in some way Answer Date of Assessment Author Not at all 12/07/2024 2:15 PM EDT Veronica Downs MA * Patient Health Questionnaire-9 Score Answer Date of Assessment Author 3 12/07/2024 2:15 PM EDT Veronica Downs MA * How difficult have these problems made it for you to do your work, take care of things at home, or get along with other people? Answer Date of Assessment Author Somewhat difficult 12/07/2024 2:15 PM EDT Veronica Hebert MA * Over the last 2 weeks, how often have you been bothered by any of the following problems? Question Answer Date of Assessment Author Feeling nervous, anxious, or on edge 1 12/07/2024 2:16 PM EDT Veronica Downs MA Not being able to stop or co ntrol worrying 1 12/07/2024 2:16 PM EDT Veronica Downs MA Worrying too much about diff erent things 1 12/07/2024 2:16 PM EDT Veronica Downs MA Trouble relaxing 1 12/07/2024 2:16 PM EDT Veronica Horn MA Being so restless that it is hard to sit still 0 12/07/2024 2:16 PM EDT Veronica Downs MA Becoming easily annoyed or irritable 0 12/07/2024 2:16 PM EDT Veronica Downs MA Feeling afraid as if somethi ng awful might happen 1 12/07/2024 2:16 PM EDT Veronica Downs MA MAME-7 Total Score 5 12/07/2024 2:16 PM EDT Veronica Downs MA documented as of this encounter Progress Notes * HAVEN Aleman - 12/07/2024 2:00 PM EDT Subjective Patient ID: Ramy Quinones is a 39 y.o. male who presents for follow-up. HPI PMH VALERIA, GERD w/ h/o duodenal ulcer and UGIB, normocytic anemia, elevated A1c 5.8 2021 Last visit 03/12/23, referred to audiology Sleep: taking trazodone as rx'd and clonidine. These help. Did used to take tramadol for restless leg, has tried everything else though not sure of names of other meds. Does not have CPAP, needs larger mask and while waiting machine got taken back. Last sleep study > 3 yr ago. Would like to loseweight. Having bad GERD sx. Incl burning pain in throat, nausea, worse at night and with certain foods. Smokes MJ, no cigarettes. Lives w/ 2 kids. Review of Systems Constitutional: Negative for chills and fever. HENT: Negative for sore throat. Respiratory: Negative for cough and shortness of breath. Cardiovascular: Negative for chest pain. Gastrointestinal: Negative for constipation and diarrhea. Endocrine: Negative for polydipsia, polyphagia and polyuria. Genitourinary: Negative for dysuria. Neurological: Negative for weakness. Psychiatric/Behavioral: Positive for sleep disturbance. Objective BP 120/70 (BP Location: Right arm, Patient Position: Sitting, BP Cuff Size: Adult) Pulse 67 Temp 98.3 ??F (36.8 ??C) (Oral) Resp 20 Ht 5' 9 (1.753 m) Wt 201 lb 12.8 oz (91.5 kg) SpO2 98% BMI 29.80 kg/m?? Physical Exam Constitutional: General: He is not in acute distress. Appearance: Normal appearance. He is not ill-appearing. HENT: Head: Normocephalic and atraumatic. Nose: Congestion present. Eyes: General: No scleral icterus. Extraocular Movements: Extraocular movements intact. Pupils: Pupils are equal, round, and reactive to light. Cardiovascular: Rate and Rhythm: Normal rate and regular rhythm. Pulmonary: Effort: Pulmonary effort is normal. No accessory muscle usage or respiratory distress. Breath sounds: Normal breath sounds. Musculoskeletal: Right lower leg: No edema. Left lower leg: No edema. Skin: General: Skin is warm and dry. Coloration: Skin is not pale. Neurological: Mental Status: He is alert and oriented to person, place, and time. Psychiatric: Mood and Affect: Mood normal. Behavior: Behavior normal. Assessment/Plan Diagnoses and all orders for this visit: Normocytic anemia Recheck: - CBC auto differential; Future - Iron And Total Iron Binding Capacity; Future - Reticulocyte Count; Future UPDATE: still present, retic count normal, Fe normal. Added fecal occult testing. VALERIA (obstructive sleep apnea) Update sleep study Encouraged weight loss, consider GLP1/GIP pending updated sleep study and lifestyle interventions Recommend: Daily exercise at least 30min, moderate intensity, incorporating both cardiovascular exercise and weight training. Adequate protein intake, Recommended at least 20 g per meal of protein to assist with satiety. Decrease soda and sugary beverage consumption. - PSG - CBC auto differential; Future Periodic limb movement disorder Declined to fill tramadol at this time, would recommend check anemia status and correct first Mixed anxiety and depressive disorder Declines BH today, consider duloxetine benefit in future given positive response to tramadol Elevated hemoglobin A1c Lifestyle recommendations: be as active as able, ideally exercise 150min moderate intensity or 75min vigorous intensity weekly; increase intake of vegetables, fruits, whole grains, fish. Try to minimize intake of sugary or greasy food and drink. Use olive oil or vegetable, peanut, canola, or similar oil for cooking. Decrease or stop drinking alcohol if you drink, quit/decrease smoking if you smoke. - Comprehensive Metabolic Panel; Future - Hemoglobin A1c; Future Esophagitis Switch to PPI pending stool testing for severe GERD sx, refer to GI 12/08/24 for EGD Avoid triggers. Common triggers (food that make your symptoms worse) include coffee, chocolate, alcohol, peppermint, and fatty foods. Stop smoking if you smoke. Do not eat within 2 hours of laying down/bedtime. Elevate head of bed (I.e. can place books or blocks under legs of bed frame or wedge under mattrress). Lose weight (if you are overweight). Avoid tight clothing that squeezes your mid section. Use medications as prescribed and please let us know if these are not working. - famotidine (Pepcid) 20 MG tablet; TAKE 1 TABLET BY MOUTH TWICE A DAY NEEDED FOR ACID REFLUX - Helicobacter pylori Antigen, EIA, Stool; Future - GI referral Nasal congestion Comments: x1 yr, sometimes w/ frontal HARDY. Rec cont PRN fluticasone, nasal saline. Orders: - fluticasone (Flonase) 50 MCG/ACT nasal spray; Administer 1-2 sprays into each nostril if needed each day for rhinitis or allergies. Shake gently. Before first use, prime pump. After use, clean tip and replace cap. Routine screening for STI (sexually transmitted infection) - Hepatitis C Antibody with Reflex to HCV, RNA, Quantitative, Real-Time PCR; Future - HIV-1/2 Antigen and Antibodies, Fourth Generation, with Reflexes; Future - Syphilis Screen; Future No future appointments. documented in this encounter Plan of Treatment Scheduled Orders Name Type Priority Associated Diagnoses Orde r Schedule Helicobacter pylori Antigen, EIA, Stool Lab Routine Esophagitis Expected: 12/07/2024, Expires: 12/07/2025 Polysomnography [facility] Routine VALERIA (obstructive sleep apnea) Expected: 12/08/2024 (Approximate), Expires: 12/07/2025 Fecal Globin By Immunochemistry Lab Routine Normocytic anemia Expected: 12/08/2024 (Approximate), Expires: 12/08/2025 Scheduled Referrals Name Type Priority Associated Diagnoses Order Schedule Referral to Gastroenterology Outpatient Referral Routine Esophagitis Expected: 12/08/2024 (Approximate), Expires: 12/07/2025 documented as of this encounter Procedures Procedure Name Priority Date/Time Associated Diagnosis Comments SYPHILIS SCREEN Routine 12/07/2024 2:38 PM EDT Routine screening for STI (sexually transmitted infection) CBC WITH AUTO DIFFERENTIAL Routine 12/07/2024 2:38 PM EDT Normocytic anemia VALERIA (obstructive sleep apnea) HEPATITIS C AB W/REFL TO HCV RNA, QN, PCR Routine 12/07/2024 2:38 PM EDT Routine screening for STI (sexually transmitted infection) IRON AND TOTAL IRON BINDING CAPACITY Routine 12/07/2024 2:38 PM EDT Normocytic anemia HIV 1/2 ANTIGEN/ANTIBODY, FOURTH GENERATION W/RFL Routine 12/07/2024 2:38 PM EDT Routine screening for STI (sexually transmitted infection) RETICULOCYTE COUNT Routine 12/07/2024 2: 38 PM EDT Normocytic anemia HEMOGLOBIN A1C Routine 12/07/2024 2:38 PM EDT Elevated hemoglobin A1c COMPREHENSIVE METABOLIC PANEL Routine 12/07/2024 2:38 PM EDT Elevated hemoglobin A1c documented in this encounter Results * Syphilis Screen (12/07/2024 2:38 PM EDT) Pathologist [facility] Syphilis Screen Nonreactive Nonreactive [facility] Blood Venous blood specimen / Unknown 12/07/2024 2:38 PM EDT 12/07/2024 4:05 PM EDT [facility] LAB BLOOD ORDERABLES Final Resul t [facility] [address] [place] [address] [phone] * HIV-1/2 Antigen and Antibodies, Fourth Generation, with Reflexes (12/07/2024 2:38 PM EDT) HIV AB/AG Nonreactive Nonreactive [facility] Comment:HIV-1 p24 Ag and/or HIV-1/HIV-2 Ab not detected.A test result that is nonreactive does not exclude thepossibility of exposure to or infection with HIV-1 and/orHIV-2. Nonreactive results in this assay for individualswith prior exposure to HIV-1 and/or HIV-2 may be due toantigen and antibody levels that are below the limit ofdetection of this assay.The Inkvite HIV Ag/Ab Combo assay result andsupplemental assay results should be interpreted inconjunction with the patient's clinical presentation,history and other laboratory results. If the results areinconsistent with clinical evidence, additional testing issuggested to confirm the result. Blood Venous blood specimen / Unknown 12/07/2024 2:38 PM EDT 12/07/2024 4:05 PM EDT [facility] LAB BLOOD ORDERABLES Final Resul t Performing Organization Address [facility] Co de Phone Number [facility] [address] [place] [phone] * Hepatitis C Antibody with Reflex to HCV, RNA, Quantitative, Real-Time PCR (12/07/2024 2:38 PM EDT) Hepatitis C Antibody Nonreactive Nonreactive [facility] Comment:Antibodies to HCV no t detected; does not exclude early acuteHCV infection. Blood Venous blood specimen / Unknown 12/07/2024 2:38 PM EDT 12/07/2024 4:05 PM EDT [facility] LAB BLOOD ORDERABLES Final Resul t Performing Organization Address [facility] de Phone Number [facility] [address] [place] [phone] * Hemoglobin A1c (12/07/2024 2:38 PM EDT) Hemoglobin A1c 6.0 <6.0 % [facility] Comment:Hemoglobin A1C Refer ence Range Adults: 4.8 - 6.0 % Non diabetic: < 6.0 % Goal: < 7.0 %Additional Action Suggested: > 8.0 %Note: Hemoglobin A1c results are invalid for patients with abnormal amounts of HbF. Blood transfusions may impact the HbA1c concentration in the patient sample. Estimated Average Glucose 126 mg/dL [facility] Comment:eAG = Estimated ave rage glucose which is %A1C expressed asaverage glucose, using the formula of the L0N-BbuivpaKyvkoku Glucose study (ADAG), Diabetes Care, Vol.31,#8,Nov. 2007 Blood Venous blood specimen / Unknown 12/07/2024 2:38 PM EDT 12/07/2024 4:05 PM EDT us Carolyn Concepcion ANP LAB BLOOD ORDERABLES Final Resul t Performing Organization Address [facility] Co de Phone Number [facility] [address] [place] [phone] * Reticulocyte Count (12/07/2024 2:38 PM EDT) Reticulocytes Absolute 0.058 0.026 - 0.095 X10*6/uL [facility] Immature Retic Fraction 6.6 2.3 - 13.4 % [facility] Retic HGB Equivalent 31.4 30.0 - 35.0 pg [facility] Reticulocyte Percent 1.4 0.5 - 1.8 % [facility] Blood Venous blood specimen / Unknown 12/07/2024 2:38 PM EDT 12/07/2024 4:05 PM EDT Carolyn Concepcion ANP LAB BLOOD ORDERABLES Final Resul t Performing Organization Address [facility] Co de Phone Number [facility] [address] [place] [phone] * Iron And Total Iron Binding Capacity (12/07/2024 2:38 PM EDT) Iron 46 45 - 160 mcg/dL [facility] Total Iron Binding Capacity 240 228 - 428 mcg/dL [facility] Percent Iron Saturation 19 15 - 50 % [facility] Unsaturated Iron Binding 194 ug/dL [facility] Blood Venous blood specimen / Unknown 12/07/2024 2:38 PM EDT 12/07/2024 4:05 PM EDT Carolyn Concepcion ANP LAB BLOOD ORDERABLES Final Resul t Performing Organization Address [facility] Co de Phone Number [facility] [address] [place] [phone] * (ABNORMAL) CBC auto differential (12/07/2024 2:38 PM EDT) White Blood Count 8.3 4.8 - 10.8 X10*3/uL [facility] Red Blood Count 4.19(L) 4.60 - 5.80 X10*6/uL [facility] Hemoglobin 11.9(L) 14.0 - 18.0 g/dl [facility] Hematocrit 34.5(L) 42.0 - 52.0 % [facility] Mean Corpuscular Volume 82.3 80.0 - 98.0 fL [facility] Mean Corpuscular Hemoglobin 28.4 27.0 - 33.0 pg [facility] Mean Corpuscular HGB Conc 34.5 31.0 - 36.0 g/dl [facility] Red Cell Distribution Width 11.8 11.0 - 16.0 % [facility] Platelet Count 314 160 - 400 X10*3/uL [facility] Mean Platelet Volume 9.3(L) 9.4 - 12.4 fL [facility] Neutrophils Percent Auto 66.6 45 - 73 % [facility] Imm Gran Pct Auto 0.4 0.0 - 0.4 % [facility] Lymphocytes Percent Auto 22.1 20 - 40 % [facility] Monocytes Percent Auto 5.5 2 - 11 % [facility] Eosinophils Percent Auto 4.8(H) 0 - 4 % [facility] Basophils Percent Auto 0.6 0 - 2 % [facility] NRBC Pct Auto 0.0 0.0 - 0.2 /100WBC [facility] Neutrophils Absolute Auto 5.6 2.0 - 8.3 x10*3/uL [facility] Imm Gran Abs Auto 0.03 0.00 - 0.03 X10*3/uL [facility] Lymphocytes Absolute Auto 1.8 1.2 - 4.9 X10*3/uL [facility] Monocytes Absolute Auto 0.5 0.1 - 1.2 X10*3/uL [facility] Eosinophils Absolute Auto 0.4 0.0 - 0.4 X10*3/uL [facility] Basophils Absolute Auto 0.1 0.0 - 0.2 X10*3/uL [facility] NRBC Abs Auto 0.000 0.0 - 0.012 X10*3/uL [facility] Blood Venous blood specimen / Unknown 12/07/2024 2:38 PM EDT 12/07/2024 4:05 PM EDT Carolyn Concepcion [facility] BLOOD ORDERABLES Final Resul t [facility] [address] [place] [phone] * (ABNORMAL) Comprehensive Metabolic Panel (12/07/2024 2:38 PM EDT) Sodium 134(L) 135 - 145 mmol/L [facility] Potassium 4.2 3.3 - 5.1 mmol/L [facility] Chloride 100 96 - 108 mmol/L [facility] Carbon Dioxide 27 22 - 29 mmol/L [facility] Anion Gap 11(L) 12 - 20 [facility] Urea Nitrogen (BUN) 11 9 - 16 mg/dL [facility] Creatinine, Serum 0.85 0.5 - 1.4 mg/dL [facility] Estimated Glomerular Filt Rate >60 [facility] Comment:Chronic Kidney Disea se: Estimated GFR < 60 mL/min/[id number] Kidney Disease: Estimated GFR < 15 mL/min/1.73m2 Glucose 111 60 - 115 mg/dL [facility] Calcium 9.3 8.4 - 10.2 mg/dL [facility] Bilirubin, Total 0.3 0.0 - 1.0 mg/dL [facility] Aspartate Amino Transferase 30 5 - 37 U/L [facility] Alanine Aminotransferase 51(H) 0 - 40 U/L [facility] Total Protein 7.6 6.5 - 8.0 g/dL [facility] Albumin Level 4.5 3.5 - 5.0 g/dL [facility] Alkaline Phosphatase 68 39 - 117 U/L [facility] Blood Venous blood specimen / Unknown 12/07/2024 2:38 PM EDT 12/07/2024 4:05 PM EDT us Carolyn OROURKE LAB BLOOD ORDERABLES Final Resul t [facility] [address] [place] [phone] documented in this encounter Visit Diagnoses Diagnosis Normocytic anemia- Primary Unspecified anemia VALERIA (obstructive sleep apnea) Obstructive sleep apnea (adult) (pediatric) Periodic limb movement disorder Mixed anxiety and depressive disorder Dysthymic disorder Elevated hemoglobin A1c Other abnormal blood chemistry Esophagitis Unspecified esophagitis Nasal congestion Other diseases of nasal cavity and sinuses Routine screening for STI (sexually transmitted infection) Screening examination for venereal disease documented in this encounter Additional Health Concerns Assessment Noted Time PHQ-9 Depression Total Score: 3 12/08/19 2:15 PM EDT documented as of this encounter Care Teams Lumber Sorter Relationship Specialty Start Date End Date Carolyn Concepcion ANP [address] [place] [phone] PCP - General Family Medicine 01/03/23 documented as of this encounter
--- OUTSIDE RECORDS SUMMARY | 2024-12-08 16:50 | XMS_ITS | Encounter Summary ---
Author Organization [employer] Address [address] [facility] 7t [place] [address] Care Team Providers Care Lockstitch Tunnel Elastic Operator Name Role Phone Kenneth Hernandez Primary Care Provider Unavail Carolyn Moseley Primary Care Provider [phone] Reason for Visit * Reason Onset Date Comments Appointment Request 09/24/2022 Encounter Details Date Type Department Care Team (Late st Contact Info) Description 09/24/2022 Telephone [facility] MEDICINE [address] [place] [address] Kenneth Hernandez AGNP Appointment Request Social History [...] - 09/26/2022 10:23 AM EDT T/C to [phone] for below message, No answer. LVM to call back on [phone]. * Telephone Encounter - Armida Morrissey - 09/24/2022 4:03 PM EDT Tc from pt requesting an appointment to discuss medications clonidine 0.1 mg and trazodone states was prescribed by outside provider. Pt states they are no longer being seen. Photo Cartographer did advise PCP was changed from Dr. Leija to , needs TP appointment. Pt is also requesting a call back from nurses in regards to medication. Please contact pt at [phone] documented in this encounter Plan of Treatment Not on file documented as of this encounter Visit Diagnoses Not on filedocumented in this encounter Care Teams Lockstitch Tunnel Elastic Operator Relationship Specialty Start Date End Date Kenneth Hernandez AGNP PCP - General Family Medicine 01/23/22 01/02/23 Carolyn Concepcion ANP [address] [place] [id number] PCP - General Family Medicine 01/03/23 documented as of this encounter
--- OUTSIDE RECORDS SUMMARY | 2024-12-08 16:50 | XMS_ITS | Encounter Summary ---
Author Organization [employer] Address [address] [facility] 7t [place] [address] Care Team Providers Care Outside Sales Account Executive Name Role Phone Carolyn Concepcion Primary Care Provider [phone] Encounter Details Date Type Department Care Team [...] documented as of this encounter Care Teams Outside Sales Account Executive Relationship Specialty Start Date End Date Carolyn Concepcion ANP [address] [place] [address] PCP - General Family Medicine 01/03/23 documented as of this encounter
--- OUTSIDE RECORDS SUMMARY | 2024-12-08 16:50 | XMS_ITS | Encounter Summary ---
Author Organization [employer] Address [address] [facility] 7t [place] [address] Care Team Providers Care Medical Stenographer Name Role Phone Carolyn Concepcion Primary Care Provider [phone] Encounter Details Date Type Department Care Team (Latest Contact Info) Description 12/08/2024 Results Follow-Up [facility] MEDICINE [address] [place] [address] Carolyn Concepcion ANP [address] [place] [address] Comprehensive Metabolic Panel, CBC auto differential, Iron And Total Iron Binding Capacity, Additional followed-up results: 5 Social History Tobacco Use Types Packs/Day Years [...] documented as of this encounter Care Teams Medical Stenographer Relationship Specialty Start Date End Date Carolyn Concepcion ANP [address] [place] [id number] PCP - General Family Medicine 01/03/23 documented as of this encounter
--- OUTSIDE RECORDS SUMMARY | 2024-12-08 16:50 | XMS_ITS | Encounter Summary ---
Author Organization [employer] Address [address] [facility] 7 [place] [address] Care Team Providers Care Wood Casket Assembler Name Role Phone Carolyn Concepcion Primary Care Provider [phone] Reason for Visit * Reason Onset Date Comments Med Refill 03/02/2024 Encounter Details Date Type Department Care Team ([facility] Contact Info) Description 03/02/2024 Telephone [facility] MEDICINE [address] [place], [place] [phone] Carolyn Concepcion ANP [address] [place] [address] Med Refill Social History Tobacco Use Types [...] 50 MG tablet To be sent to: [facility]/pharmacy #[id number] [place] [address] documented in this encounter Plan of Treatment Not on file documented as of this encounter Visit Diagnoses Not on filedocumented in this encounter Additional Health Concerns Assessment Noted Time PHQ-9 Depression Total Score: 6 11/10/19 23 2:20 PM EDT documented as of this encounter Care Teams Wood Casket Assembler Relationship Specialty Start Date End Date Carolyn Concepcion ANP [address] [place] [address] PCP - General Family Medicine 01/03/23 documented as of this encounter
--- OUTSIDE RECORDS SUMMARY | 2024-12-08 16:50 | XMS_ITS | Encounter Summary ---
Author Organization [employer] Address [address] [facility] 7t [place] [address] Care Team Providers Care Manager Part Name Role Phone Kenneth Hernandez Primary Care Provider Unavail Carolyn Moseley Primary Care Provider [phone] Reason for Visit * Reason Onset Date Comments Nurse Triage 09/28/2022 Encounter Details Date Type Department Care Team ([facility] st Contact Info) Description 09/28/2022 Telephone [facility] MEDICINE [address] [place] [address] Kenneth Hernandez AGNP Nurse Triage Social History [...] due to sleeplessness. [facility] [place] difficulty Pt missed too many apts and nowhas been discharged. Pt had been taking clonidine 0.1mg and trazadone 50mg which was very effectivefor sleep. Pt has no medication left . Pt is advised to come to [facility] to be seen by provider and Pt [...] for this symptom Please contact pt at [phone] documented in this encounter Plan of Treatment Not on file documented as of this encounter Visit Diagnoses Not on filedocumented in this encounter Care Teams Manager Part Relationship Specialty Start Date End Date Kenneth Hernandez AGNP PCP - General Family Medicine 01/23/22 01/02/23 Carolyn Concepcion ANP [address] [place] [id number] PCP - General Family Medicine 01/03/23 documented as of this encounter
--- OUTSIDE RECORDS SUMMARY | 2024-12-08 16:50 | XMS_ITS | Encounter Summary ---
Author Organization [employer] Address [address] [facility] 7t [place] [address] Care Team Providers Care Software Developer Mid Level Name Role Phone Carolyn Concepcion Primary Care Provider [phone] Reason for Visit * Reason Comments Med Refill Encounter Details Date Type Department Care Team ([facility] st Contact Info) Description 04/03/2024 Refill [facility] MEDICINE [address] [place] [address] Carolyn Concepcion ANP [address] [place] [address] Nasal congestion Social History Tobacco Use Types [...] documented as of this encounter Care Teams Software Developer Mid Level Relationship Specialty Start Date End Date Carolyn Concepcion ANP [address] [place] [address] PCP - General Family Medicine 01/03/23 documented as of this encounter
--- OUTSIDE RECORDS SUMMARY | 2024-12-08 16:50 | XMS_ITS | Clinical Summary ---
Author Organization [employer] Address [address] [place] [address] 7[address] [place] [address] Care Team Providers Care Uniform Force Captain Name Role Phone Carolyn Concepcion HAVEN Primary Care Provider [phone] Allergies Active Allergy Reactions Criticality Noted Date [...] Encounters Date Type Department Care Team Description 12/08/2024 Results Follow-Up [address] [address] Carolyn Concepcion ANP Comprehensive Metabolic Panel, CBC auto differential, Iron And Total Iron Binding Capacity, Additional followed-up results: 5 12/07/2024 2:00 PM EDT Office Visit [address] [address] Carolyn Concepcion ANP Normocytic anemia (Primary Dx); VALERIA (obstructive sleep apnea); Periodic limb movement disorder; Mixed anxiety and depressive disorder; Elevated hemoglobin A1c; Esophagitis; Nasal congestion; Routine screening for STI (sexually transmitted infection) 12/07/2024 Travel 12/04/[address] [address] Carolyn Concepcion ANP CHART PREP 12/03/[address] [address] Carolyn Concepcion ANP Med Refill 11/17/2024 Refill [facility] [address] [place], [place] [phone] Cassie Monteiro MD Insomnia, unspecified type 10/18/2024 Refill [facility] [address] [place], [place] [phone] Carolyn Concepcion ANP Insomnia, unspecified type 09/14/2024 Telephone [facility] [address] [place] [address] Romero Fernandez [place] Appointment Request 09/14/2024 Orders Only [facility] [address] [place] [address] Carolyn Concepcion ANP 09/12/2024 Refill [facility] [address] [place] [address] Carolyn Concepcion ANP Insomnia, unspecified type from [...] Influenza, IIV3, injectable 03/02/2011 Influenza, Split (incl. mrailyn fied surface antigen) 01/04/2012 MMR 08/08/1995,06/30/1985 Rabies, [...] Health Maintenance Due Date Last Done Comments Alcohol/Substance Use Screening 1996 Family Planning (PISQ) 01/25/1999 HPV Vaccines (1 - Male 3-dose series) 01/25/1999 COVID-19 Vaccine ( - season) 2023 05/25/2021, 11/02/2020, 10/05/2020 Influenza Vaccine (#1) 2024 , 01/24/2021, 02/13/2020, Additional history exists Depression Screening 12/07/2025 12/07/2024, 12/08/19 Diabetes: Hemoglobin A1C 12/07/2025 025, 11/09/2022, 01/24/2021 Disability Screening 12/07/2025 12/07/2024 SDOH Screening 12/07/2025 [...] on patient's age to complete this topic HIV Screening Completed 12/07/2024 Hepatitis C Screening Completed 12/07/2024, 023 Meningococcal B Vaccine Aged Out No l [...] Routine screening for STI (sexually transmitted infection) HIV 1/2 ANTIGEN/ANTIBODY, FOURTH GENERATION W/RFL Routine 12/07/2024 2:38 PM EDT Routine screening for STI (sexually transmitted infection) HEPATITIS C AB W/REFL TO HCV RNA, QN, PCR Routine 12/07/2024 2:38 PM EDT Routine screening for STI (sexually transmitted infection) HEMOGLOBIN A1C Routine 12/07/2024 2:38 PM EDT Elevated hemoglobin A1c RETICULOCYTE COUNT Routine 12/07/2024 2: 38 PM EDT Normocytic anemia IRON AND TOTAL IRON BINDING CAPACITY Routine 12/07/2024 2:38 PM EDT Normocytic anemia CBC WITH AUTO DIFFERENTIAL Routine 12/07/2024 2:38 PM EDT Normocytic anemia VALERIA (obstructive sleep apnea) COMPREHENSIVE METABOLIC PANEL Routine 12/07/2024 2:38 PM EDT Elevated hemoglobin A1c LIPID PANEL, STANDARD Routine 11/09/2022 3:44 PM EDT Class 1 obesity due to excess calories with body mass index (BMI) of 30.0 to 30.9 in adult, unspecified whether serious comorbidity present from Last 3 Months or Most Recently Relevant to Health Maintenance Results * Syphilis Screen (12/07/2024 2:38 PM EDT) Syphilis Screen Nonreactive Nonreactive [facility] Blood Venous blood specimen / Unknown 12/07/2024 2:38 PM EDT 12/07/2024 4:05 PM EDT us Carolyn Concepcion ANP LAB BLOOD ORDERABLES Final Resul t [facility] [address], [place] [phone] * (ABNORMAL) CBC auto differential (12/07/2024 2:38 PM EDT) White Blood Count 8.3 4.8 - 10.8 X10*3/uL [facility] Red Blood Count 4.19(L) 4.60 - 5.80 X10*6/uL [facility] Hemoglobin 11.9(L) 14.0 - 18.0 g/dl [facility] Hematocrit 34.5(L) 42.0 - 52.0 % [facility] Mean Corpuscular Volume 82.3 80.0 - 98.0 fL [facility] Mean Corpuscular Hemoglobin 28.4 27.0 - 33.0 pg [facility] Mean Corpuscular HGB Conc 34.5 31.0 - 36.0 g/dl [facility] Red Cell Distribution Width 11.8 11.0 - 16.0 % [facility] Platelet Count 314 160 - 400 X10*3/uL [facility] Mean Platelet Volume 9.3(L) 9.4 - 12.4 fL [facility] Neutrophils Percent Auto 66.6 45 - 73 % [facility] Imm Gran Pct Auto 0.4 0.0 - 0.4 % [facility] Lymphocytes Percent Auto 22.1 20 - 40 % [facility] Monocytes Percent Auto 5.5 2 - 11 % [facility] Eosinophils Percent Auto 4.8(H) 0 - 4 % [facility] Basophils Percent Auto 0.6 0 - 2 % [facility] NRBC Pct Auto 0.0 0.0 - 0.2 /100WBC [facility] Neutrophils Absolute Auto 5.6 2.0 - 8.3 x10*3/uL [facility] Imm Gran Abs Auto 0.03 0.00 - 0.03 X10*3/uL [facility] Lymphocytes Absolute Auto 1.8 1.2 - 4.9 X10*3/uL [facility] Monocytes Absolute Auto 0.5 0.1 - 1.2 X10*3/uL [facility] Eosinophils Absolute Auto 0.4 0.0 - 0.4 X10*3/uL [facility] Basophils Absolute Auto 0.1 0.0 - 0.2 X10*3/uL [facility] NRBC Abs Auto 0.000 0.0 - 0.012 X10*3/uL [facility] Blood Venous blood specimen / Unknown 12/07/2024 2:38 PM EDT 12/07/2024 4:05 PM EDT Carolyn Concepcion [facility] LAB BLOOD ORDERABLES Final Resul t Performing Organization Address [facility] Co de Phone Number [facility] [address] [place] [phone] * Hepatitis C Antibody with Reflex to HCV, RNA, Quantitative, Real-Time PCR (12/07/2024 2:38 PM EDT) Pathologist [facility] Hepatitis C Antibody Nonreactive Nonreactive [facility] Comment:Antibodies to HCV no t detected; does not exclude early acuteHCV infection. Blood Venous blood specimen / Unknown 12/07/2024 2:38 PM EDT 12/07/2024 4:05 PM EDT Carolyn Concepcion [facility] LAB BLOOD ORDERABLES Final Resul t Performing Organization Address [facility] Co de Phone Number [facility] [address] [place] [phone] * Iron And Total Iron Binding Capacity (12/07/2024 2:38 PM EDT) Iron 46 45 - 160 mcg/dL [facility] Total Iron Binding Capacity 240 228 - 428 mcg/dL [facility] Percent Iron Saturation 19 15 - 50 % [facility] Unsaturated Iron Binding 194 ug/dL [facility] Blood Venous blood specimen / Unknown 12/07/2024 2:38 PM EDT 12/07/2024 4:05 PM EDT Carolyn Concepcion [facility] LAB BLOOD ORDERABLES Final Resul t Performing Organization Address [facility] de Phone Number [facility] [address] [place] [phone] * HIV-1/2 Antigen and Antibodies, Fourth Generation, with Reflexes (12/07/2024 2:38 PM EDT) [facility] HIV AB/AG Nonreactive Nonreactive [facility] Comment:HIV-1 p24 Ag and/or HIV-1/HIV-2 Ab not detected.A test result that is nonreactive does not exclude thepossibility of exposure to or infection with HIV-1 and/orHIV-2. Nonreactive results in this assay for individualswith prior exposure to HIV-1 and/or HIV-2 may be due toantigen and antibody levels that are below the limit ofdetection of this assay.The [employer] HIV Ag/Ab Combo assay result andsupplemental assay results should be interpreted inconjunction with the patient's clinical presentation,history and other laboratory results. If the results areinconsistent with clinical evidence, additional testing issuggested to confirm the result. Blood Venous blood specimen / Unknown 12/07/2024 2:38 PM EDT 12/07/2024 4:05 PM EDT Carolyn Concepcion [facility] LAB BLOOD ORDERABLES Final Resul t Performing Organization Address [facility] Co de Phone Number [facility] [address] [place] [phone] * Reticulocyte Count (12/07/2024 2:38 PM EDT) [facility] Reticulocytes Absolute 0.058 0.026 - 0.095 X10*6/uL [facility] Immature Retic Fraction 6.6 2.3 - 13.4 % [facility] Retic HGB Equivalent 31.4 30.0 - 35.0 pg [facility] Reticulocyte Percent 1.4 0.5 - 1.8 % [facility] Blood Venous blood specimen / Unknown 12/07/2024 2:38 PM EDT 12/07/2024 4:05 PM EDT Carolyn Concepcion ANP LAB BLOOD ORDERABLES Final Resul t Performing Organization Address [facility] de Phone Number [facility] [address] [place] [phone] * Hemoglobin A1c (12/07/2024 2:38 PM EDT) Hemoglobin A1c 6.0 <6.0 % [facility] Comment:Hemoglobin A1C Refer ence Range Adults: 4.8 - 6.0 % Non diabetic: < 6.0 % Goal: < 7.0 %Additional Action Suggested: > 8.0 %Note: Hemoglobin A1c results are invalid for patients with abnormal amounts of HbF. Blood transfusions may impact the HbA1c concentration in the patient sample. Estimated Average Glucose 126 mg/dL [facility] Comment:eAG = Estimated ave rage glucose which is %A1C expressed asaverage glucose, using the formula of the A8D-KcimnezKgnqfja Glucose study (ADAG), Diabetes Care, Vol.31,#8,Nov. 2007 Blood Venous blood specimen / Unknown 12/07/2024 2:38 PM EDT 12/07/2024 4:05 PM EDT Carolyn Concepcion ANP LAB BLOOD ORDERABLES Final Resul t Performing Organization Address [facility] Co de Phone Number [facility] [address] [place] [phone] * (ABNORMAL) Comprehensive Metabolic Panel (12/07/2024 2:38 PM EDT) Sodium 134(L) 135 - 145 mmol/L [facility] Potassium 4.2 3.3 - 5.1 mmol/L [facility] Chloride 100 96 - 108 mmol/L [facility] Carbon Dioxide 27 22 - 29 mmol/L [facility] Anion Gap 11(L) 12 - 20 [facility] Urea Nitrogen (BUN) 11 9 - 16 mg/dL [facility] Creatinine, Serum 0.85 0.5 - 1.4 mg/dL [facility] Estimated Glomerular Filt Rate >60 [facility] Comment:Chronic Kidney Disea se: Estimated GFR < 60 mL/min/1.40q6Kyrfnf Kidney Disease: Estimated GFR < 15 mL/min/1.73m2 Glucose 111 60 - 115 mg/dL [facility] Calcium 9.3 8.4 - 10.2 mg/dL [facility] Bilirubin, Total 0.3 0.0 - 1.0 mg/dL [facility] Aspartate Amino Transferase 30 5 - 37 U/L [facility] Alanine Aminotransferase 51(H) 0 - 40 U/L [facility] Total Protein 7.6 6.5 - 8.0 g/dL [facility] Albumin Level 4.5 3.5 - 5.0 g/dL [facility] Alkaline Phosphatase 68 39 - 117 U/L [facility] Blood Venous blood specimen / Unknown 12/07/2024 2:38 PM EDT 12/07/2024 4:05 PM EDT Carolyn Concepcion [facility] LAB BLOOD ORDERABLES Final Resul t [facility] [address] [place] [phone] * Lipid Panel, Standard (11/09/2022 3:44 PM EDT) Triglycerides 162 mg/dL [facility] Comment:Desirable Triglyceri de: less than 150 mg/dLBorderline High Triglyceride 150-199 mg/dLHigh Triglyceride: 200-499 mg/dLVery High Triglyceride: greater than or equal to 5OO mg/dL Cholesterol 237 mg/dL [facility] Comment:Desirable Cholestero l: less than 200 mg/dLBorderline High Cholesterol: 200-239 mg/dLHigh Cholesterol: greater than 239 mg/dL LDL Cholesterol Calculated 169 mg/dl [facility] Comment:Desirable LDL: less than 100 mg/dLNear Optimal/Above Optimal LDL: 110- 129 mg/dLBorderline High LDL: 130-159 mg/dLHigh LDL: 160-189 mg/dLVery High LDL: greater than or equal to 190 mg/dL HDL Cholesterol 36 mg/dL [facility] Comment:Desirable HDL: great er than 40 mg/dL Note: This HDL assay may give artificially low results in patients with liver disease. Blood Venous blood specimen / Unknown 11/09/2022 3:44 PM EDT 11/09/2022 4:18 PM EDT Kenneth Hernandez [facility] LAB BLOOD ORDERABLES Final Res ult [facility] [address] [place] [phone] from Last 3 Months or Most Recently Relevant to Health Maintenance Insurance [facility] C3 Care Teams Uniform Force Captain Relationship Specialty Start Date End Date Carolyn Concepcion ANP [address] [place] [address] PCP - General Family Medicine 01/03/23
--- OUTSIDE RECORDS SUMMARY | 2024-12-08 16:50 | XMS_ITS | Encounter Summary ---
Author Organization [employer] Address [address] [facility] 7 [place] [address] Care Team Providers Care Assembly Line Robot Operator Name Role Phone Carolyn Concepcion Primary Care Provider [phone] Reason for Visit * Reason Onset Date Comments CHART PREP 12/04/2024 Encounter Details Date Type Department Care Team ([facility] Contact Info) Description 12/04/2024 Telephone [facility] [address] [place] [address] Carolyn Concepcion ANP [address] [place] [address] CHART PREP Social History Tobacco Use Types [...] documented as of this encounter Care Teams Assembly Line Robot Operator Relationship Specialty Start Date End Date Carolyn Concepcion ANP [address] [place] [address] PCP - General Family Medicine 01/03/23 documented as of this encounter
--- OUTSIDE RECORDS SUMMARY | 2024-12-08 16:50 | XMS_ITS | Encounter Summary ---
Author Organization [employer] Address [address] [facility] 7t [place] [address] Care Team Providers Care Horticulture Professor Name Role Phone Carolyn Concepcion Primary Care Provider Reason for Visit * Reason Onset Date Comments Med Refill 12/03/2024 Encounter Details Date Type Department Care Team ([facility] Contact Info) Description 12/03/2024 Telephone [facility] [address] [place], [place] [phone] Carolyn Concepcion ANP [address] [place] [address] Med Refill Social History Tobacco Use Types [...] 3:12 PM EDT Medications were sent to [facility][id number] on 11/18/24 #30 to soon for refill. Last seen 03/12/23 and has appointment scheduled for 12/07/24. * Telephone Encounter - Bjorn Abdi - 12/03/2024 2:58 PM EDT TC from pt requesting medication refill. Medications needing refill : trazodone (Desyrel) 50 MG tablet cloNIDine (Catapres) 0.1 MG tablet To be sent to: [facility]/pharmacy #[id number] documented in this encounter Plan of Treatment Not on file documented as of this encounter Visit Diagnoses Not on filedocumented in this encounter Additional Health Concerns Assessment Noted Time PHQ-9 Depression Total Score: 6 11/10/19 2:20 PM EDT documented as of this encounter Care Teams Horticulture Professor Relationship Specialty Start Date End Date Carolyn Concepcion ANP [address] [place] [address] PCP - General Family Medicine 01/03/23 documented as of this encounter
== END 2024-12-08 16:18 | disposition home or self-care (01) ==
LOC: HO.LNP 16:17
PROVIDERS: Visit Provider Nurse Practitioner Primary Care
DX: K20.90 Esophagitis, unspecified without bleeding (principal); D64.9 Anemia, unspecified
CPT/HCPCS: 87338